=== PATIENT | female | born 1935 | race Caucasian/White ===

== ENCOUNTER 2019-05-16 12:18 | Inpatient (IN) ==
[2019-05-16] MEDS ORDERED: ASPIRIN 325 MG TABLET PO STA (12:40)
[2019-05-16] MEDS ORDERED: NITROGLYCERIN 2% OINT 1 INCH/GM PACK TOP STA (12:40)
[2019-05-16 13:23] LABS: Basophils % 0.1 % (0.0-0.8); Hematocrit 39.6 VOL% (35.7-47.0); Hemoglobin 14.2 GM/DL (12.0-16.0); Immature Granulocytes % 0.3 %; Immature Granulocytes Absolute 0.04 #; Lymphocytes # 0.3 10*3/uL (1.4-4.0); Lymphocytes % 2.2 % (21.3-54.2); Mean Corpuscular HGB Conc 35.9 GM/DL (32-36); Mean Corpuscular Volume 89.6 FL (87-102); Mean Platelet Volume 9.3 FL (9.6-12.0); Monocytes % 7.5 % (1.7-12.7); Neutrophils % 89.9 % (38.7-73.9); Platelet Count 250 T/CUMM (130-400); Red Blood Count 4.42 MC/CUMM (3.8-5.5); Red Cell Distribution Width 11.9 % (9.3-17.3); White Blood Count 15.5 T/CUMM (4-12)
[2019-05-16 13:37] LABS: Apearance,Urine CLEAR (Clear); Bilirubin,Urine Negative (Negative); Blood, Urine Negative (Negative); Glucose,Urine (UA) 50 mg/dL (Negative); Ketones,Urine Negative (Negative); Mucus,Urine Occasional /LPF (Occasional); Nitrite,Urine Negative (Negative); Protein,Urine Negative; RBC,Urine 1 /HPF (0-4); Squamous Epithelial Cell,Urine Occasional /HPF (0-10); Urine Color Yellow (Yellow); Urine Specific Gravity 1.012 (1.001-1.035); Urine Urobilinogen < 2.0 EU/DL (0.2-1.0); WBC,Urine <1 /HPF (0-6)
[2019-05-16 13:41] LABS: Albumin 3.9 G/DL (3.4-5.0); Bilirubin,Total 1.6 MG/DL (0.2-1.0); Calcium 9.5 MG/DL (8.5-10.1); Osmolality,Calculated 270.7 MOS/KG (273-304); Total Protein 7.4 G/DL (6.4-8.3)
[2019-05-16 13:43] LABS: Troponin I < 0.015 NG/ML (0.00-0.045)
[2019-05-16 13:44] LABS: PT Patient Result 10.7 SECS (9.6-12.2); Partial Thromboplastin Time 22.1 SECS (20.8-36.0)
[2019-05-16 14:47] LABS: Band Neutrophils 4 % (0-10); Lymphocytes 4 % (20-55); Segmented Neutrophils 84 % (50-85); Total Cells Counted 100
[2019-05-16 14:48] LABS: Platelet Estimate Adequate
[2019-05-16] MEDS: ONDANSETRON 4 MG/2 ML VIAL IV STA ×2 (14:49→15:12)
[2019-05-16] MEDS ORDERED: AZITHROMYCIN INJ 500 MG in SODIUM CHLORIDE 0.9% 250 ML IV STA (15:43)
[2019-05-16] MEDS ORDERED: cefTRIAXone 1,000 MG in SODIUM CHLORIDE 0.9% 100 ML IV STA (15:43)
[2019-05-16] MEDS ORDERED: ALBUTEROL/IPRATROPIUM 3 ML NEB RESP TX STA (15:43)
[2019-05-16] MEDS ORDERED: ACETAMINOPHEN 325 MG TABLET PO PRN (16:57)
[2019-05-16 19:35] LABS: Troponin I < 0.015 NG/ML (0.00-0.045)
[2019-05-16] MEDS: ALBUTEROL/IPRATROPIUM 3 ML NEB RESP TX SCH (19:56)
[2019-05-16 20:22] LABS: Troponin I < 0.015 NG/ML (0.00-0.045)
[2019-05-16] MEDS: ENOXAPARIN 40 MG/0.4 ML SYRINGE SUBCUT SCH (21:26)
[2019-05-17] MEDS: ALBUTEROL/IPRATROPIUM 3 ML NEB RESP TX SCH ×4 (00:27→19:52)
[2019-05-17 05:16] LABS: Basophils % 0.1 % (0.0-0.8); Hematocrit 36.3 VOL% (35.7-47.0); Hemoglobin 12.4 GM/DL (12.0-16.0); Immature Granulocytes % 0.5 %; Immature Granulocytes Absolute 0.08 #; Lymphocytes # 0.6 10*3/uL (1.4-4.0); Lymphocytes % 3.8 % (21.3-54.2); Mean Corpuscular HGB Conc 34.2 GM/DL (32-36); Mean Corpuscular Volume 92.4 FL (87-102); Mean Platelet Volume 9.7 FL (9.6-12.0); Monocytes % 7.7 % (1.7-12.7); Neutrophils % 87.9 % (38.7-73.9); Platelet Count 219 T/CUMM (130-400); Red Blood Count 3.93 MC/CUMM (3.8-5.5); Red Cell Distribution Width 12.2 % (9.3-17.3); White Blood Count 15.5 T/CUMM (4-12)
[2019-05-17 05:40] LABS: Band Neutrophils 23 % (0-10); Lymphocytes 6 % (20-55); Platelet Estimate Normal; Segmented Neutrophils 64 % (50-85); Total Cells Counted 100
[2019-05-17 05:41] LABS: Anisocytosis Slight; Macrocytosis Slight
[2019-05-17 05:59] LABS: Albumin 3.1 G/DL (3.4-5.0); Bilirubin,Total 1.3 MG/DL (0.2-1.0); Calcium 8.9 MG/DL (8.5-10.1); Osmolality,Calculated 273.5 MOS/KG (273-304); Risk Ratio 1.92; Total Protein 6.2 G/DL (6.4-8.3); VLDL CHOLESTEROL 18.6 MG/DL
[2019-05-17] MEDS ORDERED: AZITHROMYCIN INJ 500 MG in SODIUM CHLORIDE 0.9% 250 ML IV SCH (09:00)
[2019-05-17] MEDS: POTASSIUM CHLORIDE 20 MEQ TABLET PO PRN ×3 (09:08→17:41)
[2019-05-17] MEDS: cefTRIAXone 1,000 MG in SYRINGE 1 EACH IV SCH (09:08)
[2019-05-17] MEDS ORDERED: GLUCAGON 1 MG VIAL IM PRN (12:21)
[2019-05-17] MEDS ORDERED: DEXTROSE 10% 25 GM/250 ML BAG IV PRN (12:21)
[2019-05-17] MEDS: INSULIN LISPRO 100 UNIT/ML SUBCUT SCH ×2 (17:03→21:01)
[2019-05-17] MEDS: ENOXAPARIN 40 MG/0.4 ML SYRINGE SUBCUT SCH (21:01)
[2019-05-18] MEDS: ALBUTEROL/IPRATROPIUM 3 ML NEB RESP TX SCH ×4 (00:30→21:04)
[2019-05-18 05:27] LABS: Basophils % 0.2 % (0.0-0.8); Eosinophils % 0.1 % (0.00-10.9); Hematocrit 34.8 VOL% (35.7-47.0); Hemoglobin 11.9 GM/DL (12.0-16.0); Immature Granulocytes % 0.4 %; Immature Granulocytes Absolute 0.05 #; Lymphocytes # 0.7 10*3/uL (1.4-4.0); Lymphocytes % 5.9 % (21.3-54.2); Mean Corpuscular HGB Conc 34.2 GM/DL (32-36); Mean Corpuscular Volume 93.3 FL (87-102); Mean Platelet Volume 9.3 FL (9.6-12.0); Monocytes % 4.7 % (1.7-12.7); Neutrophils % 88.7 % (38.7-73.9); Platelet Count 207 T/CUMM (130-400); Red Blood Count 3.73 MC/CUMM (3.8-5.5); Red Cell Distribution Width 12.3 % (9.3-17.3); White Blood Count 11.2 T/CUMM (4-12)
[2019-05-18 05:49] LABS: Albumin 2.7 G/DL (3.4-5.0); Bilirubin,Total 1.1 MG/DL (0.2-1.0); Osmolality,Calculated 270.4 MOS/KG (273-304); Total Protein 6.1 G/DL (6.4-8.3)
[2019-05-18] MEDS: cefTRIAXone 1,000 MG in SYRINGE 1 EACH IV SCH (09:03)
[2019-05-18] MEDS: INSULIN LISPRO 100 UNIT/ML SUBCUT SCH ×4 (09:04→20:42)
[2019-05-18] MEDS: AZITHROMYCIN 250 MG TABLET PO SCH (09:05)
[2019-05-18] MEDS: POTASSIUM CHLORIDE 20 MEQ TABLET PO PRN (09:06)
[2019-05-18] MEDS: BISOPROLOL 5 MG TABLET PO SCH (17:05)
[2019-05-18] MEDS: ENOXAPARIN 40 MG/0.4 ML SYRINGE SUBCUT SCH (20:42)
[2019-05-19] MEDS: ALBUTEROL/IPRATROPIUM 3 ML NEB RESP TX SCH ×2 (01:58→06:51)
[2019-05-19 04:57] LABS: Basophils % 0.1 % (0.0-0.8); Eosinophils # 0.1 10*3/uL (0.0-0.87); Eosinophils % 0.9 % (0.00-10.9); Hematocrit 34.6 VOL% (35.7-47.0); Hemoglobin 11.9 GM/DL (12.0-16.0); Immature Granulocytes % 0.2 %; Immature Granulocytes Absolute 0.02 #; Lymphocytes # 0.8 10*3/uL (1.4-4.0); Lymphocytes % 9.1 % (21.3-54.2); Mean Corpuscular HGB Conc 34.4 GM/DL (32-36); Mean Platelet Volume 9.5 FL (9.6-12.0); Monocytes % 8.4 % (1.7-12.7); Neutrophils % 81.3 % (38.7-73.9); Platelet Count 209 T/CUMM (130-400); Red Blood Count 3.76 MC/CUMM (3.8-5.5); Red Cell Distribution Width 12.2 % (9.3-17.3); White Blood Count 8.2 T/CUMM (4-12)
[2019-05-19 05:27] LABS: Albumin 2.5 G/DL (3.4-5.0); Bilirubin,Total 0.8 MG/DL (0.2-1.0); Calcium 8.9 MG/DL (8.5-10.1); Osmolality,Calculated 266.5 MOS/KG (273-304)
[2019-05-19] MEDS: INSULIN LISPRO 100 UNIT/ML SUBCUT SCH ×2 (08:47→12:46)
[2019-05-19] MEDS: BISOPROLOL 5 MG TABLET PO SCH (08:49)
[2019-05-19] MEDS: AZITHROMYCIN 250 MG TABLET PO SCH (08:49)
[2019-05-19] MEDS: cefTRIAXone 1,000 MG in SYRINGE 1 EACH IV SCH (08:50)
[2019-05-19] MEDS ORDERED: SIMVASTATIN 20 MG TABLET PO SCH (09:00)
[2019-05-19] MEDS ORDERED: EZETIMIBE 10 MG TABLET PO SCH (09:00)
[2019-05-19] MEDS ORDERED: TRIAMTERENE/HCTZ 37.5-25 MG TABLET PO SCH (09:00)
[2019-05-19 12:12] VITALS: BP 127/80
== END 2019-05-19 14:37 | disposition home or self-care (01) | DRG 193 ==
LOC: N.ED 12:18 → N.EDINP 16:51 → SUATTDRO 16:51 → N.EDINP 18:14 → N.2E 18:18
PROVIDERS: ADMIT Internal Medicine; ATTEND Internal Medicine Geriatric Medicine